=== PATIENT | female | born 1985 | race Caucasian/White ===

== ENCOUNTER 2025-09-06 17:07 | Emergency (ER) | payer OTHER, SELFPAY ==
--- NOTE | ~2025-09-06 | XR_ITS ---
XR chest 2V INDICATION:. 40 years Female cp COMPARISON: None FINDINGS: A single view of the chest demonstrates normal heart size. The lungs are clear. There is no evidence of pneumothorax or pleural effusion. IMPRESSION: No acute pulmonary findings. Reviewed, dictated and finalized at location S.
[2025-09-06 17:10] VITALS: BP 174/89; PULSE 98; RESP 16; TEMP 36.9; O2SAT 100
--- NOTE | 2025-09-06 17:10 | ECG_ITS ---
Test Date: 2025-09-06 17:15:54 Measurements Intervals [place] Rate: 84 P: 51 [place]: 129 QRS: 15 QRSD: 98 T: 20 QT: 375 QTc: 446 Interpretive Statements SINUS RHYTHM VOLTAGE CRITERIA FOR LVH MINIMAL Q WAVES- HIGH LATERAL LEADS BASELINE ARTIFACT- I, II, III, AVR, AVL, AVF BORDERLINE ECG No previous ECG available for comparison Electronically Signed On 09-06-2025 19:00:19 CDT by Naveen Garza D.O.
[2025-09-06 17:25] LABS: Hematocrit 34.3 % (37.0-47.0); Hemoglobin 10.5 g/dL (12.0-15.0); Immature Granulocyte Percent A 0.3 % (0-0.5); Lymphocytes Absolute Auto 2.27 K/mm3 (0.9-3.2); Mean Corpuscular HGB Conc 30.6 g/dl (32-36); Mean Corpuscular Hemoglobin 23.4 pg (26-34); Mean Corpuscular Volume 76.6 fl (80-100); Nucleated Red Blood Cells Absolute Auto 0.000 K/mm3 (0.0-0.012); Nucleated Red Blood Cells Perc 0.0 % (0.0-0.2); Platelet Count Result 311 k/mm3 (150-375); Red Blood Count 4.48 M/mm3 (4.2-5.4); White Blood Count 9.0 K/mm3 (4.5-10.0)
[2025-09-06 17:37] LABS: INR 1.0; Prothrombin Time 13.4 Seconds (11.1-14.7)
[2025-09-06 17:38] LABS: Partial Thromboplastin Time 26.1 Seconds (22.3-36.8)
[2025-09-06 17:52] LABS: Alanine Aminotransferase 25 U/L (6-35); Albumin Level 4.2 g/dL (3.5-5.1); Alkaline Phosphatase 104 U/L (38-126); Anion Gap 8 mmol/L (4-12); Aspartate Amino Transferase 32 U/L (14-36); Bilirubin,Total 0.5 mg/dL (0.2-1.3); Blood Urea Nitrogen 9 mg/dL (7-17); Calcium 8.6 mg/dL (8.4-10.2); Carbon Dioxide 23 mmol/L (22-30); Chloride 103 mmol/L (98-107); Estimated CRCL calculation 168 ml/min; Estimated Glomerular Filt Rate > 60; Glucose 103 mg/dL (65-110); Lipase 54 U/L (23-300); Potassium 3.5 mmol/L (3.4-5.0); Sodium 134 mmol/L (137-145); Total Protein 7.9 g/dL (6.3-8.2)
[2025-09-06 18:02] LABS: Troponin I < 0.012 ng/mL (0.000-0.034)
--- NOTE | 2025-09-06 20:36 | ECG_ITS ---
Test Date: 2025-09-06 20:42:30 Measurements Intervals [place] Rate: 88 P: 17 AL: 143 QRS: 14 QRSD: 94 T: 17 QT: 364 QTc: 442 Interpretive Statements SINUS RHYTHM VOLTAGE CRITERIA FOR LVH MINIMAL Q WAVES- HIGH LATERAL LEADS BASELINE ARTIFACT- I, II, III, AVR, AVL, AVF BORDERLINE ECG Compared to ECG 09/06/2025 17:15:54 No significant changes Electronically Signed On 09-07-2025 05:29:11 CDT by Naveen Garza D.O.
[2025-09-06 20:45] VITALS: BP 170/88; PULSE 93; RESP 16; TEMP 36.8; O2SAT 100
--- NOTE | 2025-09-06 21:04 | PC.NURSE ---
pt to desk, stating she is going home. pt advised to return if symptoms get worse, verbalized understanding
[2025-09-06 21:14] LABS: Troponin I < 0.012 ng/mL (0.000-0.034)
== END 2025-09-06 21:04 | disposition left against medical advice (07) ==
LOC: ANHED 21:21
PROVIDERS: Emergency Provider Emergency Medicine
DX: R07.9 Chest pain, unspecified (principal)
CPT/HCPCS: 36415; 71046; 80053; 83690; 84484; 85025; 85610; 85730; 93005; 99199

== ENCOUNTER 2025-09-07 08:25 | Emergency (ER) | payer OTHER, SELFPAY ==
--- NOTE | 2025-09-07 08:35 | ECG_ITS ---
Test Date: 2025-09-07 08:41:51 Measurements Intervals [place] Rate: 78 P: 10 RI: 137 QRS: 18 QRSD: 93 T: 20 QT: 382 QTc: 436 Interpretive Statements SINUS RHYTHM VOLTAGE CRITERIA FOR LVH MINIMAL Q WAVES- HIGH LATERAL LEADS BORDERLINE ECG Compared to ECG 09/06/2025 20:42:30 No significant changes Electronically Signed On 09-07-2025 09:19:40 CDT by Naveen Garza D.O.
[2025-09-07 08:40] VITALS: BP 150/87; PULSE 80; RESP 17; TEMP 36.7; O2SAT 96
[2025-09-07 09:19] VITALS: BP 149/80; PULSE 72; RESP 18
--- NOTE | 2025-09-07 09:19 | ED.CHESTPAIN ---
HPI - Chest Pain General Chief Complaint: Chest Pain Stated Complaint: bp high/heart small pains Time Seen by Provider: 09/07/25 08:40 Source: patient and RN notes reviewed Mode of arrival: ambulatory Limitations: no limitations History of Present Illness HPI narrative: 40-year-old female presents Express Care complaining of chest pain for approximally 1 week. Patient says it comes and goes, describes as midsternal is sharp and stabbing sensation in the middle of her chest. Patient says the pain comes on randomly, denies any pain with exertion. Patient denies any associated symptoms, no shortness of breath, no breathing problems, no nausea, vomiting, left jaw pain, left arm pain, epigastric pain, diaphoresis, fevers, upper respiratory symptoms, cough, orthopnea, leg swelling, dizziness, lightheadedness, palpitations, or any other symptoms. Patient was seen in the ER yesterday and left before seen a provider, but had a cardiac workup performed in the waiting room. Patient also says she has been doing with high blood pressure at times throughout the day, she she denies any history of hypertension, hyperlipidemia, diabetes, she is a nonsmoker. Patient denies any family history of heart disease. Patient says she drinks a lot of caffeine throughout the day as well. Related Data Home Medications ?Medication ?Instructions ?Recorded ?Confirmed ?Last Taken ?Type No Home Medications 09/07/25 09/07/25 Unknown History Allergies Allergy/AdvReac Type Severity Reaction Status Date / Time No Known Allergies Allergy Verified 09/07/25 08:55 Review of Systems Review of Systems: CONSTITUTIONAL: Denies fever, chills, or sweats. EYES: Denies visual changes, redness, or discharge. ENT: Denies rhinorrhea, congestion, sore throat, or otalgia. CARDIOVASCULAR: Positive for chest pain. Negative for dizziness, lightheadedness, orthopnea, chest pressure, chest pain with exertion, Palpitations, or edema. RESPIRATORY: Denies cough or dyspnea. GASTROINTESTINAL: Denies abdominal pain, nausea, vomiting, or diarrhea. GENITOURINARY: Denies dysuria or hematuria. SKIN: Denies rash or itching. MUSCULOSKELETAL: Denies back pain, joint pain, or myalgia. NEUROLOGIC: Denies headache, numbness, or weakness. PSYCHIATRIC: Denies anxiety or depression. All other systems reviewed are negative, except as documented in HPI. PMFSH Family History Family History Other Hypertension Social History Social History Alcohol intake: current Comments At the time of my signature, I reviewed and agree with the nursing past medical, surgical, social, and family history. There is no relevant family history pertinent to the patient complaint. Exam Narrative: GENERAL: This is a well-nourished, well-developed adult, in no apparent distress. They are non ill-appearing, nontoxic appearing. Patient is obese HEAD: normocephalic, atraumatic. EYES: Sclera clear/white. Conjunctiva normal. Vision is grossly intact. Extraocular movements intact EARS: External ears normal, auditory canals clear and without drainage, TMs normal without perforation. Hearing grossly intact. NOSE: External nose normal THROAT: Mucous membranes moist, NECK: Neck supple, CARDIOVASCULAR: Regular rate and rhythm without clicks, gallops, or rubs. Midsystolic murmur best heard at the left upper sternal border, grade 3/6. Normal S1-S2. RESPIRATORY: Clear to auscultation. Breath sounds equal bilaterally. No wheezes, rales, or rhonchi. SKIN: warm, Dry, intact with no suspicious lesions or rash, good texture and turgor. NEURO: awake, alert, and oriented to person, place and time. There were no obvious focal neurologic abnormalities. EXTREMITIES: No joint tenderness, effusion, or edema noted. Course Course Emergency Course: Portions of this record may have been created with voice recognition software Level of Care: Express Care Visit Vital Signs Vital signs: Vital Signs Temperature 97.7 F 09/07/25 08:26 Pulse Rate 74 09/07/25 08:26 Respiratory Rate 18 09/07/25 08:26 Blood Pressure 120/69 09/07/25 08:26 Pulse Oximetry 100 09/07/25 08:26 Oxygen Delivery Room Air 09/07/25 08:26 Temperature 97.7 F 09/07/25 08:26 Pulse Rate 74 09/07/25 08:26 Respiratory Rate 18 09/07/25 08:26 Blood Pressure 120/69 09/07/25 08:26 Pulse Oximetry 100 09/07/25 08:26 Oxygen Delivery Room Air 09/07/25 08:26 Reviewed MDM - Chest Pain MDM Narrative Medical decision making narrative: EKG sinus rhythm without any ischemic findings. Patient had unremarkable cardiac workup performed yesterday in the ER at [facility]. Patient to negative troponins, chest x-ray without any acute cardiopulmonary findings. EKG and change compared to EKG today. Patient's chest pain appears atypical. Patient does have a murmur on exam, she is aware of and says she has had a since she was a child. Patient has never seen a school community relations coordinator. Advised patient stop using caffeine. [place] heart score of 1. Low suspicion for ACS, patient is appropriate for outpatient cardiac workup. Offered patient your transfer again for further evaluation management her symptoms and since she did not see a provider yesterday and she declined. Patient also has not her primary care provider, she will be referred to a school community relations coordinator along with a PCP. Discussed physical exam findings. Advised supportive measures and signs/symptoms to go to the ER. Pt is appropriate for outpt treatment and f/u. Differential Diagnosis Differential diagnosis: Likely unstable angina pectoris, atypical chest pain and chest pain ECG Data EKG #1: ECG completion date: 09/07/25 ECG completion time: 08:41 Prior ECG tracings: available for review EKG Interpretation: normal rate, sinus rhythm, no ectopy, no ST changes, normal QRS, normal QT and NL axis Critical Care Time Critical Care Time Critical Care Time: No Discharge Plan Discharge Clinical Impression: Atypical chest pain Patient Disposition: Home Condition: Stable Instructions: Chest Pain (ED) Additional Instructions: Your EKG is a sinus rhythm today. Your workup in the ER yesterday was unremarkable. Please follow-up with your PCP and a school community relations coordinator in 3-5 days. Manage stress at home, avoid caffeinated drinks. Drink plenty of fluids and rest. Tylenol or ibuprofen as needed for pain. Follow instructions on the bottle. Her chest pain worsens, remains constant, comes on with exertion, you developed breathing problems, jaw pain, left arm pain, nausea, vomiting, profusely sweating, fevers, or any serious concerns please go to the ER immediately. Patient Language: [place] Prescriptions: No Action No Home Medications Follow-up/Referrals: Maribel Hopson MD [Physician, Cardiology] - 3 Days Dc Falcon MD [Physician, Family Practice] - 3 Days Time of Disposition: 09:10
== END 2025-09-07 09:19 | disposition home or self-care (01) ==
DX: R07.89 Other chest pain (principal)
CPT/HCPCS: 93005; 99213; G0463